=== PATIENT | female | born 1990 | race African-American/Black ===

== ENCOUNTER 2019-03-04 21:30 | Emergency (ER) | payer BC, MEDICAID ==
[~2019-03-04] VITALS: Ht 157.5 cm; Wt 62.6 kg
[~2019-03-04 21:30] MED LIST: [UNRECOGNIZED DRUG - CODE] PO
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
--- NOTE | 2019-03-04 23:35 | NUR ---
Patient discharged to home in stable conditon. Written and verbal after care instructions given. Patient verbalizes understanding of instructions. ALL BELONGINGS WITH PT
[2019-03-05 01:06] VITALS: BP 121/83
== END 2019-03-04 23:45 | disposition home or self-care (01) ==
LOC: ER 21:30
DX: R07.89 Other chest pain (principal); M25.532 Pain in left wrist; Z79.899 Other long term (current) drug therapy; Z91.013 Allergy to seafood; V43.52XA Car driver injured in collision with other type car in traffic accident, initial encounter; Y93.89 Activity, other specified; Y92.89 Other specified places as the place of occurrence of the external cause; Y99.8 Other external cause status
CPT/HCPCS: 71045; 73110; A4663